=== PATIENT | female | born 1985 | race Caucasian/White ===

== ENCOUNTER 2023-09-27 17:54 | Emergency (ER) | payer MEDICAID ==
[~2023-09-27] VITALS: Ht 170.2 cm; Wt 174.0 kg
[2023-09-27 18:00] VITALS: TEMP 97
[2023-09-27 20:40] VITALS: BP 168/72; PULSE 80; RESP 16; O2SAT 98
== END 2023-09-27 20:42 | disposition home or self-care (01) ==
LOC: ER 17:54
DX: N93.9 Abnormal uterine and vaginal bleeding, unspecified (principal); Z87.442 Personal history of urinary calculi
CPT/HCPCS: 36415; 84702; 99283

== ENCOUNTER → 2023-10-01 | Outpatient (CLI) | payer MEDICAID | END | disposition home or self-care (01) | LOC: RAD 09:16 | PROVIDERS: ATTEND Nurse Practitioner Family | DX: N92.1 Excessive and frequent menstruation with irregular cycle (principal); R10.9 Unspecified abdominal pain | CPT/HCPCS: 76856; 93976 ==